=== PATIENT | female | born 1965 ===

== ENCOUNTER → 2024-03-14 | Outpatient (CLI) | payer OTHER ==
--- NOTE | 2024-03-15 07:34 | CA ---
Transthoracic Echo Report Name: Luda Henderson Age: 58 Gender: F : 1965 Exam Date: 03/14/2024 13:52 Exam Location: [facility] Ht (in): 58 Wt (lb): 143 Ordering Physician: Maxwell Zee DO Attending/Referring Phys: Lobby Concierge Maria Teresa Beckman RDCS Procedure CPT: Indications: R07.89 chest pain Cardiac Hx: Technical Quality: Fair Contrast 1: Total Dose (mL): Contrast 2: Total Dose (mL): MEASUREMENTS (Male / Female) Normal Values 2D ECHO LV Diastolic Diameter PLAX 3.8 cm 4.2 - 5.9 / 3.9 - 5.3 cm LV Systolic Diameter PLAX 2.4 cm IVS Diastolic Thickness 0.6 cm 0.6 - 1.0 / 0.6 - 0.9 cm LVPW Diastolic Thickness 0.6 cm 0.6 - 1.0 / 0.6 - 0.9 cm LV Relative Wall Thickness 0.3 RV Internal Dim ED PLAX 2.6 cm LVOT Diameter 2.0 cm Aortic Root Diameter 3.0 cm LV Diastolic Volume MOD BP 52.0 cm??? 67 - 155 / 56 - 104 cm??? LV Systolic Volume MOD BP 17.1 cm??? 22 - 58 / 19 - 49 cm??? LV Ejection Fraction MOD BP 67.1 % >= 55 % LV Cardiac Index MOD BP 2022.8 cm???/min???m??? LV Diastolic Volume MOD 4C 58.5 cm??? LV Systolic Volume MOD 4C 17.5 cm??? LV Ejection Fraction MOD 4C 70.1 % LV Cardiac Index MOD 4C 2377.4 cm???/min???m??? LV Diastolic Length 4C 6.7 cm LV Systolic Length 4C 5.3 cm LV Diastolic Volume MOD 2C 45.5 cm??? LV Systolic Volume MOD 2C 16.2 cm??? LV Ejection Fraction MOD 2C 64.4 % LV Cardiac Index MOD 2C 1699.6 cm???/min???m??? LV Diastolic Length 2C 6.6 cm LV Systolic Length 2C 5.1 cm Ascending Aorta Diameter 2.9 cm DOPPLER AV Peak Velocity 109.4 cm/s AV Peak Gradient 4.8 mmHg AV Mean Velocity 70.9 cm/s AV Mean Gradient 2.4 mmHg AV Velocity Time Integral 19.0 cm LVOT Peak Velocity 98.6 cm/s LVOT Peak Gradient 3.9 mmHg LVOT Velocity Time Integral 16.0 cm LVOT Stroke Volume 49.2 cm??? LVOT Stroke Volume Index 31.2 ml/m??? LVOT Cardiac Index 2853.4 cm???/min???m??? AV Area Cont Eq vti 2.6 cm??? AV Area Cont Eq pk 2.8 cm??? Mitral E Point Velocity 53.1 cm/s Mitral A Point Velocity 47.9 cm/s Mitral E to A Ratio 1.1 MV Deceleration Time 201.5 ms MV E' Velocity 7.7 cm/s Mitral E to MV E' Ratio 6.9 PV Peak Velocity 82.3 cm/s PV Peak Gradient 2.7 mmHg FINDINGS Left Ventricle Left ventricular ejection fraction is estimated at 60-65 %. Left ventricular cavity size normal. Left ventricular wall thickness normal. No obvious regional wall motion abnormalities.normal left ventricular diastolic filling pattern. Right Ventricle Normal right ventricular size and function. Unable to estimate the right ventricular systolic pressure. Right Atrium Normal right atrial size. Left Atrium Normal left atrial size. Mitral Valve Structurally normal mitral valve. No evidence for mitral valve prolapse. No mitral stenosis. No mitral regurgitation. Aortic Valve Aortic valve not well visualized. No aortic valve stenosis or regurgitation. Tricuspid Valve Structurally normal tricuspid valve. No tricuspid stenosis. No tricuspid regurgitation. Pulmonic Valve Pulmonic valve not well visualized. No pulmonic stenosis. No pulmonic regurgitation. Pericardium No pericardial effusion. Aorta Normal size aortic root and proximal ascending aorta. CONCLUSIONS 1. Normal left ventricular size and systolic function 2. No evidence of significant Doppler abnormalities Previewed by: Dr. Salvador Mendoza MD (Electronically Signed) Final Date: 15 Mar 2024 07:33
== END | disposition home or self-care (01) ==
LOC: RADECHMAIN 13:44
PROVIDERS: ATTEND Family Medicine
DX: R07.89 Other chest pain (principal)
CPT/HCPCS: 93306

== ENCOUNTER → 2024-03-30 | Outpatient (CLI) | payer OTHER ==
--- NOTE | 2024-03-30 10:21 | CA ---
Exercise Stress Test Report Name: Luda Henderson Exam Date: 03/30/2024 08:56 Exam Location: [facility] Ht (in): 59 Wt (lb): 140 BSA: 1.58 Ordering Phys: Maxwell Mccracken DO Referring Phys: MAXWELL MCCRACKEN Technologist: Kwabena Ch Age: 58 Gender: F : 1965 Procedure CPT: Indications: R07.089 OTHER CHEST PAIN ICD-10 Codes: Patient History: Shortness of breath, hyperlipidemia and family history of heart disease. Medications: Meds past 24 hrs: Pretest Chest Pain: STRESS TEST Wilner Protocol Exercise Duration (min:sec): 02:[address] Depressions (mm): Angina Score: Marcano Score: Resting HR (bpm): 78 Peak HR (bpm): 134 Resting BP (mmHg): 125 / 73 Peak BP (mmHg): 175 / 109 MPHR: 162 Target HR: 138 % MPHR: 83 METS: 4.6 Total Dose: Peak Dose: Atropine: Double Product: 88031 BP Response: Stress Termination: Dyspnea Stress Symptoms: Dyspnea Stress Summary: ECG ANALYSIS Resting ECG: Stress ECG: CONCLUSIONS Baseline EKG revealed a normal sinus rhythm with minor nonspecific ST abnormality patient had mild wheezing to begin with. She walked on the treadmill after taking 2 puffs of albuterol inhaler. She walked only 2 minutes heart rate went up to 133 bpm which is about 82% of her predicted maximal. Stress test. Because of shortness of breath. EKG reveals slightly more prominent inferolateral changes in recovery without anginal symptoms. Her wheezing got worse with exercise. Technically this is an inconclusive stress test because of resting EKG changes and inadequate chronotropic response. However her exercise capacity is quite limited. I would recommend a dobutamine echo or more ideally coronary angiogram if ischemia is strongly suspected. Her pulmonary status should be optimized. Discussed with her primary care physician Dr. Risa Villa MD (Electronically Signed) Final Date: 30 Mar 2024 10:20
== END | disposition home or self-care (01) ==
LOC: RADNMMAIN 08:15
PROVIDERS: ATTEND Family Medicine
DX: R94.31 Abnormal electrocardiogram [ECG] [EKG] (principal); R07.89 Other chest pain; E78.5 Hyperlipidemia, unspecified; R06.02 Shortness of breath; R06.2 Wheezing; Z82.49 Family history of ischemic heart disease and other diseases of the circulatory system
CPT/HCPCS: 93017

== ENCOUNTER → 2024-07-05 | Day surgery (SDC) | payer OTHER ==
[2024-06-29 14:56] VITALS: BMI 29.2
[~2024-07-05] MED LIST: ALPRAZolam 0.25 MG TAB PO PRN; ALPRAZolam 0.5 MG TAB PO PRN; ASPIRIN 325 MG TAB PO STA; ASPIRIN 81 MG ONE; HEPARIN SODIUM 1,000 UN/ML (10ML VL) ONE; HEPARIN SODIUM,PORCINE (1 ML) 2,500 UNIT in SODIUM CHLORIDE 0.9% 250 ML IRRIGATION PRN; HEPARIN SODIUM,PORCINE 10,000 UNIT in SODIUM CHLORIDE 0.9% 1,000 ML IRRIGATION PRN; LIDOCAINE 1% INJ 10MG/ML (20 ML MDV) ONE; NITROGLYCERIN SL TABS 0.4 MG TAB SUBLINGUAL PRN; RX INFO: IV CONTRAST WAS GIVEN 1 EACH MISC MISCELLANE PRN; SODIUM CHLORIDE 0.9% 1,000 ML IV SCH; SODIUM CHLORIDE 0.9% 1,000 ML in EMPTY BAG 1 BAG IV SCH; VERAPAMIL 2.5 MG/ML 2 ML AMP ONE; fentaNYL (PF) 50 MCG/ML 2 ML AMP ONE
[2024-07-05] MEDS: SODIUM CHLORIDE 0.9% 1,000 ML IV ONE (06:40)
[2024-07-05 07:05] VITALS: TEMP 97.8
[2024-07-05] MEDS: MIDAZOLAM 2 MG/2 ML VIAL IVP ONE (07:43)
[2024-07-05] MEDS: LIDOCAINE 1% INJ 10MG/ML (20 ML MDV) SQ ONE (07:46)
[2024-07-05] MEDS: VERAPAMIL SYRINGE (5 MG/10 ML) INTRAARTER ONE (07:47)
[2024-07-05] MEDS: fentaNYL (PF) 50 MCG/ML 2 ML AMP IVP ONE (07:48)
[2024-07-05] MEDS: HEPARIN SODIUM 1,000 UN/ML (10ML VL) IVP ONE (07:50)
[2024-07-05] MEDS: HEPARIN SODIUM,PORCINE (1 ML) 2,500 UNIT in SODIUM CHLORIDE 0.9% 250 ML IRRIGATION ONE (07:54)
[2024-07-05] MEDS: IOPAMIDOL-370 200ML BTL INJ ONE (07:54)
--- NOTE | 2024-07-05 07:59 | P.PCN ---
Date of Procedure: 07/05/24 Operative Findings: CARDIAC CATHETERIZATION PERFORMING PHYSICIAN: Alen Pfeiffer MD, RPVI PROCEDURE PERFORMED: 1. Selective right and left coronary angiogram 2. Left heart catheterization 3. Ultrasound-guided access of the right radial artery INDICATION: Symptomatic 58-year-old female patient with abnormal stress test COMPLICATION: None APPROACH: Right radial artery LEVEL OF SEDATION: Moderate with a sedation length of 10 minutes PROCEDURE DESCRIPTION: After obtaining an informed consent, the patient was brought to cardiac slab lifting supervisor. Local anesthesia was performed using lidocaine subcutaneously. The right radial artery was cannulated using Seldinger technique, the guidewire passed easily, following that we advanced a 5-German sheath dilator assembly, the wire and dilator were removed and sheath was flushed. Following that, 2 mg of verapamil along with 5000 unit heparin were given. Selective right and left coronary angiogram using a 6-German JR4 and JL 3.5 catheters. Following that we did left heart catheterization using the JR4 catheter which crossed the aortic valve The procedure was completed there was no complication. SELECTIVE CORONARY ANGIOGRAM: The right coronary artery: Large-caliber vessel and a dominant vessel with mild disease only Left main: Is angiographically normal The left circumflex: Large-caliber vessel nondominant vessel with no high-grade stenosis was identified The left anterior descending artery: Medium to large caliber vessel with no high-grade stenosis was identified as well HEMODYNAMICS: LVEDP was 18 mmHg with no significant gradient across aortic valve CONCLUSION: 1. Mild nonobstructive CAD 2. Mildly elevated LVEDP POSTPROCEDURE MANAGEMENT: Medical treatment
[2024-07-05 10:33] VITALS: RESP 14
[2024-07-05 10:34] VITALS: BP 107/73; PULSE 84
== END ==
LOC: CATHCVL 05:59
PROVIDERS: ATTEND Internal Medicine Interventional Cardiology
DX: I25.110 Atherosclerotic heart disease of native coronary artery with unstable angina pectoris (principal); I10 Essential (primary) hypertension; E78.00 Pure hypercholesterolemia, unspecified; J44.89 Other specified chronic obstructive pulmonary disease; F17.210 Nicotine dependence, cigarettes, uncomplicated; Z79.1 Long term (current) use of non-steroidal anti-inflammatories (NSAID); Z79.51 Long term (current) use of inhaled steroids; Z79.899 Other long term (current) drug therapy; Z82.49 Family history of ischemic heart disease and other diseases of the circulatory system
CPT/HCPCS: 93458